=== PATIENT | male | born 1935 | race Caucasian/White ===

== ENCOUNTER → 2016-11-11 | Outpatient (CLI) | payer OTHER ==
[~2016-11-11] MED LIST: ASPI325T4 PO; CEPH-376 PO; CHOL10002 PO; DIPH25CA61 PO; DOCU-30 PO; DOCU100C8 PO; FAMO20TA7 PO; IBUP200T64 PO; METH750T2 PO; OXYC-302 PO; POLY17PO3 PO
== END | disposition home or self-care (01) ==
LOC: STAR 07:59
PROVIDERS: ATTEND Thoracic Surgery (Cardiothoracic Vascular Surgery)
DX: Z01.818 Encounter for other preprocedural examination (principal); K40.90 Unilateral inguinal hernia, without obstruction or gangrene, not specified as recurrent
CPT/HCPCS: 93005

== ENCOUNTER 2016-11-25 06:06 | Day surgery (SDC) | payer OTHER ==
[2016-11-11 08:24] VITALS: BP 160/105
[~2016-11-25] VITALS: Ht 182.9 cm; Wt 98.0 kg
[2016-11-25] MEDS ORDERED: FENTANYL PF 250 MCG/5ML ONE (06:32)
[2016-11-25] MEDS ORDERED: LACTATED RINGERS 1,000 ML IV SCH ×2 (06:52→08:32)
[2016-11-25 06:53] VITALS: BP 160/105
[2016-11-25] MEDS ORDERED: BUPIVACAINE/PF-EPI 0.25% 1:200K ONE (07:09)
[2016-11-25] MEDS ORDERED: HYDROcodone/APAP 7.5-325MG/15ML UDC PO PRN (07:30)
[2016-11-25] MEDS ORDERED: LABETALOL 5MG/ML, 20ML IV PRN (07:30)
[2016-11-25] MEDS ORDERED: ONDANSETRON 2MG/ML, 2ML IVPush PRN ×2 (07:30→09:00)
[2016-11-25] MEDS ORDERED: PROMETHAZINE 25 MG/ML, 1ML IV PRN (07:30)
[2016-11-25] MEDS ORDERED: HYDROmorphone 1 MG/ML, 1ML IV PRN (07:30)
[2016-11-25] MEDS ORDERED: OXYcodone 5 MG/5 ML ORAL.SOL UDC PO PRN (07:30)
[2016-11-25] MEDS ORDERED: FENTANYL PF 100 MCG/2ML IV PRN (07:30)
[2016-11-25] MEDS ORDERED: ACETAMINOPHEN 325 MG TABLET PO PRN (07:30)
[2016-11-25] MEDS ORDERED: hydrALAzine 20 MG/ML, 1ML IV PRN (07:30)
[2016-11-25] MEDS ORDERED: EPHEDRINE 50 MG/ML, 1ML IVPush PRN (07:30)
[2016-11-25] MEDS ORDERED: ACETAMINOPHEN 650 MG/20.3 ML UDC ONE (08:38)
[2016-11-25] MEDS ORDERED: OXYcodone 5 MG/5 ML ORAL.SOL UDC ONE (08:39)
[2016-11-25] MEDS ORDERED: HYDROcodone/APAP 5/325 TABLET PO PRN (09:00)
[2016-11-25] MEDS ORDERED: morphine SULFATE 10 MG/ML, 1ML IVPush PRN (09:00)
[2016-11-25] MEDS ORDERED: ONDANSETRON 2MG/ML, 2ML ONE (16:20)
[2016-11-25] MEDS ORDERED: SUCCINYLCHOLINE 20 MG/ML, 10ML ONE (16:20)
[2016-11-25] MEDS ORDERED: EPHEDRINE 50 MG/ML, 1ML ONE (16:20)
[2016-11-25] MEDS ORDERED: ROCURONIUM 10 MG/ML ONE (16:20)
[2016-11-25] MEDS ORDERED: GLYCOPYRROLATE 0.2MG/1ML ONE (16:20)
[2016-11-25] MEDS ORDERED: NEOSTIGMINE 1 MG/ML, 10ML ONE (16:20)
[2016-11-25] MEDS ORDERED: CEFAZOLIN 1,000 MG ONE (16:20)
[2016-11-25] MEDS ORDERED: PHENYLEPHRINE 10 MG/ML ONE (16:20)
[2016-11-25] MEDS ORDERED: DEXAMETHASONE 4 MG/ML, 1ML ONE (16:20)
[2016-11-25] MEDS ORDERED: PROPOFOL 10 MG/ML, 20ML ONE (16:20)
== END 2016-11-25 13:35 | disposition home or self-care (01) ==
LOC: OUT 06:06
PROVIDERS: ATTEND Thoracic Surgery (Cardiothoracic Vascular Surgery)
DX: K40.90 Unilateral inguinal hernia, without obstruction or gangrene, not specified as recurrent (principal); I10 Essential (primary) hypertension; Z72.89 Other problems related to lifestyle
CPT/HCPCS: 49650; C1727; C1781; J0330; J0690; J1100; J2370; J2405; J2704; J2710; J3010; J3490; J7120

== ENCOUNTER 2017-07-31 08:08 | Emergency (ER) | payer OTHER ==
[~2017-07-31] VITALS: Ht 182.9 cm; Wt 100.0 kg
[~2017-07-31 08:08] MED LIST changes: +ASPI325T17 PO; -ASPI325T4 PO; +DOCU-131 PO; -DOCU-30 PO; +DOCU100C33 PO; -DOCU100C8 PO
[2017-07-31] MEDS ORDERED: SODIUM CHLORIDE 0.9% 1,000 ML IV ONE (09:28)
[2017-07-31] MEDS ORDERED: SODIUM CHLORIDE FLUSH 10ML SYR IVF ONE (09:30)
[2017-07-31] MEDS ORDERED: FAMOTIDINE 20 MG/2 ML IVP ONE (09:30)
[2017-07-31] MEDS ORDERED: MAALOX/HYOSCYAMINE/LIDOCAINE 45 ML BTL PO ONE (09:30)
[2017-07-31] MEDS ORDERED: FAMOTIDINE 20 MG/2 ML ONE (10:04)
[2017-07-31] MEDS ORDERED: MAALOX/HYOSCYAMINE/LIDOCAINE 45 ML BTL ONE (10:04)
[2017-07-31 10:33] LABS: BASOPHILS # (AUTO) 0.05 x10^3/uL (0-0.1); BASOPHILS % (AUTO) 0 % (0-1); EOSINOPHILS # (AUTO) 0.04 x10^3/uL (0-0.4); EOSINOPHILS % (AUTO) 0 % (1-7); LYMPHOCYTES # (AUTO) 0.99 x10^3/uL (1-3.4); LYMPHOCYTES % (AUTO) 9 % (22-44); MD NO; MEAN CORPUSCULAR HEMOGLOBIN 30.9 pg (27.5-34.5); MEAN CORPUSCULAR HGB CONC 33.4 g/dL (33.2-36.2); MEAN CORPUSCULAR VOLUME 92.3 fL (81-97); MEAN PLATELET VOLUME 7.7 fL (7.4-10.4); MONOCYTES # (AUTO) 1.01 x10^3/uL (0.2-0.8); MONOCYTES % (AUTO) 9 % (2-9); NEUTROPHILS # (AUTO) 8.82 x10^3/uL (1.8-6.8); NEUTROPHILS % (AUTO) 81 % (42-75); PLATELET COUNT 228 x10^3/uL (130-400); RED BLOOD COUNT 4.98 x10^6/uL (4.38-5.82); RED CELL DISTRIBUTION WIDTH 14.4 % (9.4-14.8)
[2017-07-31 10:43] LABS: ALBUMIN 3.4 g/dL (3.4-5.0); ANION GAP 8 mmol/L (5-15); CALCIUM 8.6 mg/dL (8.5-10.1); CHLORIDE 107 mmol/L (98-107)
[2017-07-31 10:45] LABS: ALANINE AMINOTRANSFERASE 25 U/L (12-78); ALKALINE PHOSPHATASE 81 U/L (45-117); BILIRUBIN,TOTAL 0.7 mg/dL (0.2-1.0); CREATININE 1.07 mg/dL (0.7-1.3); TOTAL PROTEIN 7.3 g/dL (6.4-8.2)
[2017-07-31] MEDS ORDERED: OMNIPAQUE 350 MG/ML, 100ML BOTTLE ONE (11:35)
[2017-07-31 12:32] LABS: MICROSCOPIC AUTO
[2017-07-31 12:33] LABS: CULTURE INDICATED? NO
[2017-07-31 13:25] VITALS: BP 180/103
== END 2017-07-31 13:27 | disposition home or self-care (01) ==
LOC: ED 10:55
DX: R10.84 Generalized abdominal pain (principal)
CPT/HCPCS: 36415; 74022; 74177; 80053; 81001; 83690; 85025; 93005; 96361; 96374; 99285; J7030; Q9967; S0028

== ENCOUNTER 2017-08-23 08:14 | Day surgery (SDC) | payer OTHER ==
[~2017-08-23] VITALS: Ht 182.9 cm; Wt 99.4 kg
[~2017-08-23 08:14] MED LIST changes: +BUPIVACAINE/PF 0.5% ONE; +EPINEPHRINE 1 MG/ML, 1ML ONE
[2017-08-23] MEDS ORDERED: LACTATED RINGERS 1,000 ML IV SCH (08:51)
[2017-08-23 08:57] VITALS: BP 152/97
[2017-08-23] MEDS ORDERED: LIDOCAINE 1%, 2ML SQ PRN (09:00)
[2017-08-23] MEDS ORDERED: MIDAZOLAM 1 MG/ML, 2ML ONE (09:11)
[2017-08-23] MEDS ORDERED: FENTANYL PF 100 MCG/2ML ONE ×2 (09:11→11:16)
[2017-08-23] MEDS ORDERED: LIDOCAINE GEL 2%, 5ML ONE (09:22)
[2017-08-23] MEDS ORDERED: SUCCINYLCHOLINE 20 MG/ML, 10ML ONE (09:22)
[2017-08-23] MEDS ORDERED: ONDANSETRON 2MG/ML, 2ML ONE (09:22)
[2017-08-23] MEDS ORDERED: DEXAMETHASONE 4 MG/ML, 1ML ONE (09:22)
[2017-08-23] MEDS ORDERED: PROPOFOL 10 MG/ML, 20ML ONE (09:22)
[2017-08-23] MEDS ORDERED: CEFAZOLIN 1,000 MG ONE (09:22)
[2017-08-23] MEDS ORDERED: ROCURONIUM 10 MG/ML,10ML ONE (09:22)
[2017-08-23] MEDS ORDERED: NEOSTIGMINE 1 MG/ML, 10ML ONE (09:22)
[2017-08-23] MEDS ORDERED: GLYCOPYRROLATE 0.2MG/1ML, 5ML ONE (09:22)
[2017-08-23] MEDS ORDERED: PHENYLEPHRINE 10 MG/ML ONE (09:48)
[2017-08-23] MEDS ORDERED: ACETAMINOPHEN 325 MG TABLET PO PRN (10:00)
[2017-08-23] MEDS ORDERED: HYDROmorphone 1 MG/ML, 1ML IV PRN (10:00)
[2017-08-23] MEDS ORDERED: hydrALAzine 20 MG/ML, 1ML IV PRN (10:00)
[2017-08-23] MEDS ORDERED: ONDANSETRON 2MG/ML, 2ML IVPush PRN (10:00)
[2017-08-23] MEDS ORDERED: MIDAZOLAM 1 MG/ML, 2ML IV PRN (10:00)
[2017-08-23] MEDS ORDERED: ALBUTEROL/IPRATROPIUM 2.5MG/0.5MG, 3 ML NPPB PRN (10:00)
[2017-08-23] MEDS ORDERED: OXYcodone 5 MG/5 ML ORAL.SOL UDC PO PRN (10:00)
[2017-08-23] MEDS ORDERED: MEPERIDINE/PF 25MG/0.5ML IVPush PRN (10:00)
[2017-08-23] MEDS ORDERED: PROMETHAZINE 25 MG/ML, 1ML IV PRN (10:00)
[2017-08-23] MEDS ORDERED: KETOROLAC 30 MG/1 ML ONE (10:25)
[2017-08-23] MEDS ORDERED: LIDOCAINE-MPF 2% ,5ML ONE (10:29)
[2017-08-23] MEDS ORDERED: ACETAMINOPHEN 650 MG/20.3 ML UDC ONE (11:16)
[2017-08-23] MEDS ORDERED: OXYcodone 5 MG/5 ML ORAL.SOL UDC ONE (11:16)
[2017-08-23] MEDS: LABETALOL 5MG/ML, 20ML IV PRN ×2 (11:27→11:42)
[2017-08-23] MEDS: FENTANYL PF 100 MCG/2ML IV PRN ×3 (11:32→11:51)
[2017-08-23] MEDS ORDERED: hydrALAzine 20 MG/ML, 1ML ONE (11:44)
== END 2017-08-23 14:18 | disposition home or self-care (01) ==
LOC: OUT 08:14
PROVIDERS: ATTEND Surgery Vascular Surgery
DX: K80.12 Calculus of gallbladder with acute and chronic cholecystitis without obstruction (principal); M19.90 Unspecified osteoarthritis, unspecified site; Z98.890 Other specified postprocedural states
CPT/HCPCS: 47562; 88304; J0171; J0330; J0360; J0690; J1100; J2250; J2370; J2405; J2704; J2710; J3010; J3490; J7120; J1885

== ENCOUNTER → 2017-10-11 | Outpatient (CLI) | payer OTHER ==
[~2017-10-11] MED LIST changes: -BUPIVACAINE/PF 0.5% ONE; -EPINEPHRINE 1 MG/ML, 1ML ONE
== END | disposition home or self-care (01) ==
LOC: STAR 10:51
DX: K83.8 Other specified diseases of biliary tract (principal)
CPT/HCPCS: 93005

== ENCOUNTER 2017-10-18 10:49 | Day surgery (SDC) | payer OTHER ==
[~2017-10-18] VITALS: Ht 182.9 cm; Wt 98.6 kg
[2017-10-18] MEDS ORDERED: LACTATED RINGERS 1,000 ML IV SCH (11:27)
[2017-10-18 11:32] VITALS: BP 148/104
[2017-10-18] MEDS ORDERED: FENTANYL PF 100 MCG/2ML ONE (12:56)
[2017-10-18] MEDS ORDERED: MIDAZOLAM 1 MG/ML, 2ML ONE (12:56)
[2017-10-18] MEDS ORDERED: PROPOFOL 10 MG/ML, 20ML ONE (12:57)
[2017-10-18] MEDS ORDERED: LIDOCAINE-MPF 2% ,5ML ONE ×2 (12:57)
[2017-10-18] MEDS ORDERED: SUCCINYLCHOLINE 20 MG/ML, 10ML ONE (13:10)
[2017-10-18] MEDS ORDERED: KETOROLAC 30 MG/1 ML ONE (13:24)
[2017-10-18] MEDS ORDERED: ONDANSETRON 2MG/ML, 2ML ONE (13:24)
[2017-10-18] MEDS ORDERED: DEXAMETHASONE 4 MG/ML, 1ML ONE (13:24)
[2017-10-18] MEDS ORDERED: OMNIPAQUE 350 MG/ML, 50 ML BOTTLE ONE (13:41)
[2017-10-18] MEDS ORDERED: OXYcodone 5 MG/5 ML ORAL.SOL UDC PO PRN (14:00)
[2017-10-18] MEDS ORDERED: FENTANYL PF 100 MCG/2ML IV PRN (14:00)
[2017-10-18] MEDS ORDERED: morphine SULFATE 10 MG/ML, 1ML IV PRN (14:00)
[2017-10-18] MEDS ORDERED: PROMETHAZINE 12.5 MG SUPP PR PRN (14:00)
[2017-10-18] MEDS ORDERED: hydrALAzine 20 MG/ML, 1ML IV PRN (14:00)
[2017-10-18] MEDS ORDERED: LABETALOL 5MG/ML, 20ML ONE (14:11)
[2017-10-18] MEDS: LABETALOL 5MG/ML, 20ML IV PRN ×2 (14:13→14:26)
== END 2017-10-18 15:25 ==
LOC: OUT 10:49
DX: K83.9 Disease of biliary tract, unspecified (principal); I10 Essential (primary) hypertension; Z90.49 Acquired absence of other specified parts of digestive tract
CPT/HCPCS: 43275; 74328; C1769; J0330; J1100; J1885; J2250; J2405; J2704; J3010; J3490; J7120; Q9967